=== PATIENT | female | born 1955 | race Caucasian/White ===

== ENCOUNTER 2023-05-02 11:00 | Inpatient (IN) | payer MEDICARE, BC ==
[2023-05-02 11:32] VITALS: BMI 30.7
[2023-05-05] MEDS ORDERED: Midazolam HCl 2 mg/2 ml Vial ONE (06:24)
[2023-05-05] MEDS ORDERED: fentaNYL 50 mcg/mL 1 mL Vial ONE (06:24)
[2023-05-05] MEDS ORDERED: fentaNYL PF 100 MCG/2 ML SYRINGE ONE (06:24)
[2023-05-05] MEDS ORDERED: Sodium Chloride 0.9% 100 ML ONE ×2 (06:29→07:01)
[2023-05-05] MEDS ORDERED: Tranexamic Acid 1,000 MG/10 ML VIAL ONE (06:29)
[2023-05-05] MEDS ORDERED: HYDROcodone/Acetaminophen 10/325 mg Tablet PO PRN ×2 (06:58)
[2023-05-05] MEDS ORDERED: CLOTRIMAZOLE 10 MG PO SCH (07:00)
[2023-05-05] MEDS ORDERED: Non-Formulary Item 1 EACH (Benzonatate [Benzonatate] 200 MG Capsule) PO PRN (07:00)
[2023-05-05] MEDS ORDERED: hydrOXYzine 25 MG TAB PO PRN ×2 (07:00→07:06)
[2023-05-05] MEDS ORDERED: Non-Formulary Item 1 EACH (Albuterol Sulfate [Proair Digihaler] 90 MCG Aer.Pw.Bas) INH PRN (07:00)
[2023-05-05] MEDS ORDERED: CEFAZOLIN 2 GM VIAL ONE (07:01)
[2023-05-05] MEDS ORDERED: Albuterol 200 PUFF (6.7GM INHALER) INH PRN (07:06)
[2023-05-05] MEDS ORDERED: Benzonatate 100 MG CAP PO PRN (07:07)
[2023-05-05] MEDS ORDERED: PROPOFOL 200 MG/20 ML VIAL ONE (07:25)
[2023-05-05] MEDS ORDERED: Ondansetron PF 4 MG/2 ML Vial ONE (07:25)
[2023-05-05] MEDS ORDERED: Rocuronium Bromide 10 MG/ML (10ML VIAL) ONE (07:25)
[2023-05-05] MEDS ORDERED: Phenylephrine 10 MG/ML VIAL ONE (07:47)
[2023-05-05] MEDS ORDERED: fentaNYL 50 mcg/mL 1 mL Vial SLOW IVP PRN (08:37)
[2023-05-05] MEDS ORDERED: traMADol HCl 50 MG TAB PO PRN ×2 (08:45)
[2023-05-05] MEDS ORDERED: Lidocaine 1% (PF) 30 ML VIAL ONE (08:45)
[2023-05-05] MEDS ORDERED: Ropivacaine 0.5% HCl/PF (150 MG/30 ML VIAL) ONE (08:45)
[2023-05-05] MEDS ORDERED: Ropivacaine 0.2% 550 ML 550 ML NERVE BLCK SCH (08:45)
[2023-05-05] MEDS ORDERED: Promethazine HCl 25 MG/ML VIAL IM PRN ×2 (08:45→09:20)
[2023-05-05] MEDS ORDERED: Ondansetron PF 4 MG/2 ML Vial IVP PRN (08:45)
[2023-05-05] MEDS ORDERED: Zolpidem Tartrate 5 MG TAB PO PRN (08:45)
[2023-05-05] MEDS ORDERED: Ropivacaine 0.2% HCl/PF 20 ML ONE (08:45)
[2023-05-05] MEDS ORDERED: Non-Formulary Item 1 EACH (Multivitamin [Multivitamin] 1 EACH Tablet) PO SCH (09:00)
[2023-05-05] MEDS ORDERED: Calcium Carbonate 600 MG TAB PO SCH (09:00)
[2023-05-05] MEDS ORDERED: Non-Formulary Item 1 EACH (Esomeprazole Magnesium [Nexium] 40 MG Cap) PO SCH (09:00)
[2023-05-05] MEDS ORDERED: Non-Formulary Item 1 EACH (Cholecalciferol (Vitamin D3) [Vitamin D3] 5,000 UNITS Capsule) PO SCH (09:00)
[2023-05-05] MEDS ORDERED: ASCORBIC ACID 1000 MG PO SCH (09:00)
[2023-05-05] MEDS ORDERED: Non-Formulary Item 1 EACH (Irbesartan [Irbesartan] 300 MG Tablet) PO SCH (09:00)
[2023-05-05] MEDS ORDERED: Non-Formulary Item 1 EACH (L.Acidoph,Paracasei, B.Lactis [Probiotic] 1 EACH Capsule) PO SCH (09:00)
[2023-05-05] MEDS ORDERED: Non-Formulary Item 1 EACH (Hydrochlorothiazide [Hydrochlorothiazide] 12.5 MG Tablet) PO SCH (09:00)
[2023-05-05] MEDS ORDERED: SUGAMMADEX SODIUM 200 MG/2 ML VIAL ONE (09:14)
[2023-05-05] MEDS ORDERED: Ondansetron HCl/PF 4 MG/2 ML Vial IVP PRN (09:20)
[2023-05-05] MEDS: Calcium Carbonate 600 MG TAB PO SCH ×2 (12:07→21:20)
[2023-05-05] MEDS: Ascorbic Acid 500 mg Chewable Tablet PO SCH ×3 (12:07→21:20)
[2023-05-05] MEDS: Cholecalciferol 1,000 UNITS (25 MCG) TAB PO SCH (12:08)
[2023-05-05] MEDS: Losartan 25 MG TAB PO SCH (12:08)
[2023-05-05] MEDS: Multivit, Therapeutic 1 TAB PO SCH (12:08)
[2023-05-05] MEDS: Hydrochlorothiazide 25 MG TAB PO SCH (12:08)
[2023-05-05] MEDS: Saccharomyces boulardii 250 MG CAP PO SCH (12:17)
[2023-05-05] MEDS: Sertraline 25 MG TAB PO SCH (12:18)
[2023-05-05] MEDS: Ketorolac Tromethamine 30 MG/ML VIAL IVP SCH ×2 (13:02→17:37)
[2023-05-05] MEDS ORDERED: CEFAZOLIN 2 GM in Sodium Chloride 0.9% 100 ML IVPB SCH (14:00)
[2023-05-05] MEDS: CEFAZOLIN 2 GM in Sodium Chloride 0.9% 100 ML IVPB SCH (16:00)
[2023-05-05] MEDS ORDERED: Mometasone 100 MCG/Formoterol 5 MCG 120 PUFF INHALER INH SCH (18:30)
[2023-05-05] MEDS ORDERED: diphenhydrAMINE 25 MG CAP PO SCH ×2 (21:00)
[2023-05-06] MEDS: Ketorolac Tromethamine 30 MG/ML VIAL IVP SCH ×3 (00:35→11:55)
[2023-05-06] MEDS: CEFAZOLIN 2 GM in Sodium Chloride 0.9% 100 ML IVPB SCH (00:36)
[2023-05-06 08:13] VITALS: BP 150/78; TEMP 98.1
[2023-05-06] MEDS: Sertraline 25 MG TAB PO SCH (10:12)
[2023-05-06] MEDS: Calcium Carbonate 600 MG TAB PO SCH (10:13)
[2023-05-06] MEDS: Ascorbic Acid 500 mg Chewable Tablet PO SCH (10:13)
[2023-05-06] MEDS: Multivit, Therapeutic 1 TAB PO SCH (10:13)
[2023-05-06] MEDS: Hydrochlorothiazide 25 MG TAB PO SCH (10:14)
[2023-05-06] MEDS: Losartan 25 MG TAB PO SCH (10:14)
[2023-05-06] MEDS: Cholecalciferol 1,000 UNITS (25 MCG) TAB PO SCH (10:14)
[2023-05-06] MEDS: Saccharomyces boulardii 250 MG CAP PO SCH (10:14)
== END 2023-05-06 11:59 | disposition home or self-care (01) | DRG 483 ==
LOC: SURG A 05-05 06:01
PROVIDERS: ADMIT Orthopaedic Surgery; ATTEND Orthopaedic Surgery
PROC: 0RRJ00Z Replacement of Right Shoulder Joint with Reverse Ball and Socket Synthetic Substitute, Open Approach (ICD-10-PCS; principal; 2023-05-05)
DX: M75.21 Bicipital tendinitis, right shoulder (principal); M19.011 Primary osteoarthritis, right shoulder; J45.909 Unspecified asthma, uncomplicated; I48.91 Unspecified atrial fibrillation; Z96.642 Presence of left artificial hip joint; I10 Essential (primary) hypertension; Z88.2 Allergy status to sulfonamides; K21.9 Gastro-esophageal reflux disease without esophagitis; Z96.612 Presence of left artificial shoulder joint; Z90.710 Acquired absence of both cervix and uterus; Z90.89 Acquired absence of other organs; Z98.890 Other specified postprocedural states; Z88.1 Allergy status to other antibiotic agents; Z88.8 Allergy status to other drugs, medicaments and biological substances; Z79.51 Long term (current) use of inhaled steroids; Z79.899 Other long term (current) drug therapy; M12.811 Other specific arthropathies, not elsewhere classified, right shoulder
CPT/HCPCS: 94664; A4306; C1713; C1776; J1885; J2001; J2250; J2370; J2405; J2704; J2795; J3010; J3490